=== PATIENT | female | born 1995 | race Caucasian/White ===

== ENCOUNTER 2016-07-19 20:58 | Emergency (ER) | payer OTHER ==
[2016-07-19] MEDS ORDERED: SODIUM CHLORIDE 0.9% 500 ML IV ONE (21:53)
--- NOTE | 2016-07-19 22:00 | ED ---
Female Urogenital HPI - General Chief complaint: Vaginal Bleeding Stated complaint: vag bleed, early preg Time Seen by Provider: 07/19/16 21:23 Source: patient Mode of arrival: ambulatory Limitations: no limitations - History of Present Illness Initial comments: This patient is a 20 year old woman who presents to be valid for vaginal bleeding. She states that started last night around 2 AM, and was initially light she describes it. 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 The patient states that the amount of blood increased this evening after work, and she passed 2 moderate sized blood clots. The patient denies having any pain or cramping. The patient states she is concerned because she took 2 tests about 6 weeks ago that were positive. Patient does not recall her blood type. She is . Complaint: vaginal bleeding Onset/Timin -: hour(s) Severity: mild Consistency: constant Improves with: none Worsens with: none Patient : Yes - Related Data Home Medications Medication Instructions Recorded Confirmed Ezg-Kvai-Scomb Acid 1 cap PO DAILY 07/19/16 07/19/16 [-U Capsule (formulary)] Allergies Allergy/AdvReac Type Severity Reaction Status Date / Time No Known Allergies Allergy Verified 07/19/16 22:09 Review of Systems ROS Statement: Those systems with pertinent positive or pertinent negative responses have been documented in the HPI. ROS Other: All systems not noted in ROS Statement are negative. Constitutional: Denies: fever, chills Respiratory: Denies: cough, dyspnea Cardiovascular: Denies: chest pain, palpitations Gastrointestinal: Denies: abdominal pain, nausea, vomiting Genitourinary: Reports: abnormal menses. Denies: dysuria, hematuria, discharge , dyspareunia Musculoskeletal: Denies: back pain Skin: Denies: rash Neurological: Denies: headache, weakness, numbness Hematological/Lymphatic: Denies: easy bleeding Past Medical History Past Medical History: No Reported History History of Any Multi-Drug Resistant Organisms: None Reported Past Surgical History: No Surgical Hx Reported Past Anesthesia/Blood Transfusion Reactions: No Reported Reaction Past Psychological History: Anxiety Smoking Status: Current every day smoker Past Alcohol Use History: None Reported Past Drug Use History: Marijuana - Past Family History Mother Family Medical History: No Reported History General Exam Limitations: no limitations General appearance: alert, in no apparent distress Head exam: Present: atraumatic, normocephalic Eye exam: Present: normal appearance, scleral icterus. Absent: conjunctival injection, periorbital swelling ENT exam: Present: normal oropharynx Neck exam: Present: normal inspection, full ROM Respiratory exam: Present: normal lung sounds bilaterally. Absent: respiratory distress, wheezes, rales, rhonchi, stridor Cardiovascular Exam: Present: regular rate, normal rhythm, normal heart sounds. Absent: systolic murmur, diastolic murmur, rubs, gallop GI/Abdominal exam: Present: soft, normal bowel sounds. Absent: distended, tenderness, guarding, rebound, mass, pulsatile mass, hernia External exam: Present: normal external exam. Absent: erythema, lesions, lacerations, ecchymosis Speculum exam: Present: normal speculum exam, vaginal bleeding (There is a small amount of dark blood present no active bleeding. Cervix is closed). Absent: vaginal discharge, cervical discharge By manual exam: Absent: cervical motion tenderness, adnexal tenderness, adnexal mass, uterine enlargement, uterine tenderness Extremities exam: Present: normal inspection, normal capillary refill. Absent: pedal edema, calf tenderness Back exam: Present: normal inspection. Absent: CVA tenderness (R), CVA tenderness (L) Neurological exam: Present: alert Skin exam: Present: warm, dry, intact, normal color. Absent: rash Course Vital Signs 07/19/16 07/20/16 21:15 00:56 Temperature 98.5 F 98.0 F Pulse Rate 60 55 L Respiratory 18 17 Rate Blood Pressure 131/68 101/58 O2 Sat by Pulse 100 100 Oximetry Medical Decision Making - Lab Data Lab Results 07/19/16 07/19/16 07/19/16 Range/Units 22:12 22:12 22:12 HCG, Quant mIU/mL Urine Color Yellow Urine Appearance Clear (Clear) Urine pH 5.5 (5.0-8.0) Ur Specific [place] 1.022 (1.001-1.035) Urine Protein Trace H (Negative) Urine Glucose (UA) Negative (Negative) Urine Ketones Negative (Negative) Urine Blood Moderate H (Negative) Urine Nitrite Negative (Negative) Urine Bilirubin Negative (Negative) Urine Urobilinogen <2.0 (<2.0) mg/dL Ur Leukocyte Esterase Small H (Negative) Urine RBC >182 H (0-5) /hpf Urine WBC 8 H (0-5) /hpf Ur Squamous Epith Cells 1 (0-4) /hpf Urine Bacteria Rare H (None) /hpf Urine Mucus Rare H (None) /hpf Urine HCG, Qual Detected (Not Detectd) Blood Type A Positive Blood Type Recheck No 07/19/16 Range/Units 22:12 HCG, Quant 2563.1 mIU/mL Urine Color Urine Appearance (Clear) Urine pH (5.0-8.0) Ur Specific [place] (1.001-1.035) Urine Protein (Negative) Urine Glucose (UA) (Negative) Urine Ketones (Negative) Urine Blood (Negative) Urine Nitrite (Negative) Urine Bilirubin (Negative) Urine Urobilinogen (<2.0) mg/dL Ur Leukocyte Esterase (Negative) Urine RBC (0-5) /hpf Urine WBC (0-5) /hpf Ur Squamous Epith Cells (0-4) /hpf Urine Bacteria (None) /hpf Urine Mucus (None) /hpf Urine HCG, Qual (Not Detectd) Blood Type Blood Type Recheck Disposition Clinical Impression: Vaginal bleeding before 22 weeks gestation, demise Disposition: HOME SELF-CARE Condition: Fair Instructions: Threatened Miscarriage (ED) Referrals: None,Stated [Primary Care Provider] - 1-2 days Betina Nava DO [Doctor of Osteopathic Medicine] - 1-2 days
[2016-07-19 22:31] LABS: Appearance,Urine Clear (Clear); Bacteria,Urine Rare /hpf; Bilirubin,Urine Negative (Negative); Glucose,Urine (UA) Negative (Negative); Ketones,Urine Negative (Negative); Leukocyte Esterase,Urine Small (Negative); Mucus,Urine Rare /hpf; Nitrite,Urine Negative (Negative); PH, Urine 5.5 (5.0-8.0); Particle Count 4233; Protein,Urine Trace (Negative); RBC,Urine >182 /hpf (0-5); Specific Gravity,Urine 1.022 (1.001-1.035); Squamous Epithelial Cell,Urine 1 /hpf (0-4); UA Billing (MACRO vs. MICRO) MICRO; Urobilinogen,Urine <2.0 mg/dL (<2.0); WBC,Urine 8 /hpf (0-5)
--- NOTE | 2016-07-20 02:50 | US ---
EXAM: US Pelvis Complete, Transabdominal US Pelvis, Transvaginal CLINICAL HISTORY: Reason: R/O ectopic TECHNIQUE: Real-time transabdominal and transvaginal pelvic ultrasound (complete) with image documentation. Transvaginal imaging was used for better evaluation of the endometrium and adnexa. COMPARISON: No relevant prior studies available. FINDINGS: There is a 7 week 6 day gestational age intrauterine . However, no cardiac activity is identified in the embryo. No subchorionic hemorrhage. There is a 2.5 x 1.9 x 1.5 cm complex structure in the right ovary. Left ovary is unremarkable. There is vascular flow in both ovaries. Trace amount of free fluid in cul-de-sac. IMPRESSION: Findings are consistent with demise of 7 week 6 day gestational age intrauterine . Likely 2.5 cm corpus luteal cyst in right ovary. Trace amount of free fluid in cul-de-sac. [employer] 07/20/16 03:02 Verify Receipt Verified receipt with KWAME Reid in the ER for Dr. Lemus on 07/20 03:01 (-04:00)
[2016-07-20 03:06] VITALS: BP 110/69; PULSE 65; RESP 20; TEMP 97.8
== END 2016-07-20 03:15 | disposition home or self-care (01) ==
LOC: EC 20:58
DX: O02.1 Missed abortion (principal); O99.331 Smoking (tobacco) complicating pregnancy, first trimester; F17.200 Nicotine dependence, unspecified, uncomplicated; Z3A.01 Less than 8 weeks gestation of pregnancy; Z79.899 Other long term (current) drug therapy
CPT/HCPCS: 36415; 76801; 76817; 81001; 81025; 84702; 86900; 86901; 93975; 99284

== ENCOUNTER 2016-07-22 15:30 | Day surgery (SDC) | payer OTHER ==
--- NOTE | 2016-07-22 11:27 | P.HPOB ---
History of Present Illness H&P Date: 07/22/16 Chief Complaint: incomplete 20 year old presents for suction D&C. She had an US 2 days ago showing a 7 week 6 day pole with no heart beat. Blood type A+. Review of Systems All systems: negative Constitutional: Denies chills, Denies fever Eyes: denies blurred vision, denies pain Ears, nose, mouth and throat: Denies headache, Denies sore throat Cardiovascular: Denies chest pain, Denies shortness of breath Respiratory: Denies cough Gastrointestinal: Denies abdominal pain, Denies diarrhea, Denies nausea, Denies vomiting Genitourinary: Denies dysuria, Denies hematuria Musculoskeletal: Denies myalgias Integumentary: Denies pruritus, Denies rash Neurological: Denies numbness, Denies weakness Psychiatric: Denies anxiety, Denies depression Endocrine: Denies fatigue, Denies weight change Past Medical History Past Medical History: No Reported History Additional Past Medical History / Comment(s): OB history: she has had one vaginal delivery and this is her second . History of Any Multi-Drug Resistant Organisms: None Reported Past Surgical History: No Surgical Hx Reported Past Anesthesia/Blood Transfusion Reactions: No Reported Reaction Past Psychological History: Anxiety Smoking Status: Current every day smoker Past Alcohol Use History: None Reported Past Drug Use History: Marijuana - Past Family History Mother Family Medical History: No Reported History Medications and Allergies Home Medications Medication Instructions Recorded Confirmed Type Ahg-Eqow-Wbnlk Acid 1 cap PO DAILY 07/19/16 07/19/16 History [-U Capsule (formulary)] Allergies Allergy/AdvReac Type Severity Reaction Status Date / Time No Known Allergies Allergy Verified 07/19/16 22:09 Exam Osteopathic Statement: *. No significant issues noted on an osteopathic structural exam other than those noted in the History and Physical/Consult. HEart: RRR Lungs: CTAB ABdomen: soft, nontender Extremeties: neg jamilah's Assessment and Plan (1) Incomplete Status: Acute Plan: 1. Suction D&C
[2016-07-22 15:56] VITALS: RESP 16
[2016-07-22] MEDS ORDERED: LACTATED RINGERS 1,000 ML IV ONE (16:07)
[2016-07-22] MEDS ORDERED: LIDOCAINE 1% 20 ML VIAL (10MG/ML) FOR IV START INTRADERMA ONE (16:07)
[2016-07-22] MEDS ORDERED: ONDANSETRON 4 MG/2 ML VIAL IVP ONE (16:09)
[2016-07-22] MEDS ORDERED: DEXAMETHASONE SOD PHOS (MDV) 100 MG/10 ML VIAL IVP ONE (16:09)
[2016-07-22 16:23] LABS: Basophils % (A) 1 %; CH 31.2; CHCM 33.4; Eosinophils # (A) 0.5 k/uL (0-0.7); Eosinophils % (A) 8 %; HCT 38.9 % (34.0-46.0); HDW 2.02; HGB 12.8 gm/dL (11.4-16.0); Luc # (Auto) 0.08; Luc % (Auto) 1; Lymphocytes # (A) 1.5 k/uL (1.0-4.8); Lymphocytes % (A) 26 %; MCH 30.9 pg (25.0-35.0); MCHC 32.9 g/dL (31.0-37.0); MCV 93.8 fL (80.0-100.0); Mean Platelet Volume 7.2; Monocytes # (A) 0.3 k/uL (0-1.0); Monocytes % (A) 5 %; Neutrophils # (A) 3.4 k/uL (1.3-7.7); Neutrophils % (A) 59 %; RBC 4.14 m/uL (3.80-5.40); RDW 12.7 % (11.5-15.5); WBC 5.7 k/uL (3.8-10.6); WBC (Perox) 6.26
[2016-07-22 16:25] VITALS: BMI 22.7
[2016-07-22] MEDS ORDERED: PROPOFOL 10 MG/ML 20 ML VIAL IV ONE (16:53)
[2016-07-22] MEDS ORDERED: LIDOCAINE 1% INJ 10MG/ML (20 ML MDV) ONE (16:53)
[2016-07-22] MEDS ORDERED: MIDAZOLAM 2 MG/2 ML VIAL ONE (16:53)
[2016-07-22] MEDS ORDERED: KETOROLAC 30 MG/ML 1 ML VIAL ONE (16:53)
[2016-07-22] MEDS ORDERED: fentaNYL (PF) 50 MCG/ML 2 ML AMP ONE (16:53)
--- NOTE | 2016-07-22 17:18 | P.OP ---
Date of Procedure: 07/22/16 Preoperative Diagnosis: 1. Incomplete Postoperative Diagnosis: 1. Incomplete Procedure(s) Performed: Suction D&C Implants: Anesthesia: MAC Surgeon: Betina Nava Estimated Blood Loss (ml): 100 IV fluids (ml): 500 Urine output (ml): 20 Pathology: other (Uterine contents) Condition: stable Disposition: PACU Indications for Procedure: Operative Findings: Description of Procedure: Patient was taken the operating room where general anesthesia was obtained without difficulty. She is prepped and draped in normal sterile fashion dorsal lithotomy position, legs placed in the candycane stirrups. Bladder was drained of all urine. Weighted speculum placed in the vagina and the anterior lip of the cervix was grasped with a single-tooth tenaculum. The cervix was dilated to #11 Hegar dilator. A #11 curved suction curet was introduced into the uterus and hooked up to suction. This was passed several times to obtain all tissue and blood. Sharp curet was gently used to ensure all tissue was removed. The suction curet was passed a couple more times to ensure all blood was removed. Excellent hemostasis was assured. Patient tolerated the procedure well. Sponge and instrument counts were correct 2. She was taken to recovery room in stable condition.
[2016-07-22 17:40] VITALS: TEMP 98
[2016-07-22 18:23] VITALS: BP 132/61; PULSE 61
[2016-07-23] MEDS ORDERED: Pre Op ABX Message 1 EACH MISC MISCELLANE ONE (05:00)
== END 2016-07-22 18:35 | disposition home or self-care (01) ==
LOC: OR 15:30
PROVIDERS: ATTEND Obstetrics & Gynecology
DX: O03.4 Incomplete spontaneous abortion without complication (principal); F17.200 Nicotine dependence, unspecified, uncomplicated; Z3A.01 Less than 8 weeks gestation of pregnancy; Z79.899 Other long term (current) drug therapy
CPT/HCPCS: 59812; 88305; 85025; J2250; J2405; J2001; J3010; J1885; J1100; J2704

== ENCOUNTER 2017-09-14 01:38 | Inpatient (IN) | payer OTHER ==
[2017-09-14] MEDS ORDERED: METHYLERGONOVINE 0.2 MG/ML 1 ML AMP IM PRN (01:59)
[2017-09-14] MEDS ORDERED: LIDOCAINE 1% (PF) 10 MG/ML (30 ML SDV) SQ PRN (01:59)
[2017-09-14] MEDS ORDERED: PENICILLIN G POTASSIUM 5,000,000 UNIT in DEXTROSE 5% IN WATER 100 ML IVPB STA ×2 (01:59)
[2017-09-14] MEDS ORDERED: TERBUTALINE 1 MG/ML VIAL SQ PRN (01:59)
[2017-09-14] MEDS ORDERED: CARBOPROST TROMETHAMINE 250 MCG/ML 1 ML AMP IM PRN (01:59)
[2017-09-14] MEDS ORDERED: OXYTOCIN 10 UNIT/ML 1 ML VIAL IM PRN (01:59)
[2017-09-14] MEDS ORDERED: LACTATED RINGERS 1,000 ML IV SCH (02:00)
[2017-09-14 02:23] VITALS: BMI 26.3
[2017-09-14] MEDS ORDERED: SODIUM CHLORIDE 0.9% 100 ML BAG ONE (02:23)
[2017-09-14] MEDS ORDERED: fentaNYL (PF) 50 MCG/ML 5 ML AMP ONE (02:23)
[2017-09-14] MEDS ORDERED: ROPIVACAINE 5MG/ML 20ML VIAL ONE (02:23)
[2017-09-14 02:59] LABS: Basophils % (A) 0 %; Eosinophils # (A) 0.1 k/uL (0-0.7); Eosinophils % (A) 3 %; HCT 30.7 % (34.0-46.0); HGB 9.7 gm/dL (11.4-16.0); Lymphocytes # (A) 1.2 k/uL (1.0-4.8); Lymphocytes % (A) 21 %; MCHC 31.7 g/dL (31.0-37.0); MCV 88.3 fL (80.0-100.0); Mean Platelet Volume 8.9; Monocytes # (A) 0.3 k/uL (0-1.0); Monocytes % (A) 6 %; Neutrophils # (A) 3.6 k/uL (1.3-7.7); Neutrophils % (A) 66 %; Platelet Count 176 k/uL (150-450); RBC 3.47 m/uL (3.80-5.40); RDW 12.8 % (11.5-15.5); WBC 5.5 k/uL (3.8-10.6)
[2017-09-14] MEDS: LACTATED RINGERS 1,000 ML IV SCH (05:30)
[2017-09-14] MEDS: PENICILLIN G POTASSIUM 2,500,000 UNIT in DEXTROSE 5% IN WATER 100 ML IVPB SCH ×4 (06:30→12:20)
[2017-09-14] MEDS: OXYTOCIN 20 UNITS/1000 ML NS 1,000 ML IV SCH ×2 (07:13→12:36)
--- NOTE | 2017-09-14 07:18 | P.HPOB ---
History of Present Illness H&P Date: 09/14/17 Chief Complaint: My water broke This is a 22-year-old white female 3 para 1011 EDC 09/09/2017 at 40-4/7 weeks' gestation. Patient has had her care through another physician and institution, but presented here because she felt her water broke at 0015 hours, clear fluid. She denies vaginal bleeding or fluid leakage. Irregular moderate uterine contractions are noted. history is significant for blood type A+, antibody screen negative. VDRL nonreactive, urine culture negative, hepatitis B surface antigen and HIV testing negative, gonorrhea and chlamydia cultures negative, group B strep cultures positive. Social history significant for positive tobacco and marijuana use, patient denies alcohol or drug use with the . She is single. Past medical history is essentially negative. Past surgical history negative. ALLERGIES none known. Current medications vitamins daily. On exam she is 5 foot 7 inches, 168 pounds, blood pressure 131/84 and admission , patient is afebrile. The general physical exam is within normal limits. The cervix at time of this dictation is 8 cm dilated, 80% effaced, -1 station, vertex presentation. heart rate is consistent with reactive NST. Impression: 40-4/7 weeks intrauterine , active labor, care elsewhere, patient is not known to me with this current . Positive group B strep cultures, 2 doses of penicillin already received. Plan: Continue close maternal and surveillance. I would order a urine drug screen at this time. Anticipate normal spontaneous vaginal delivery. Review of Systems Constitutional: Reports as per HPI Past Medical History Past Medical History: No Reported History Additional Past Medical History / Comment(s): OB history: she has had one vaginal delivery 1 CURRENT MISCARRIAGE, KIDNEY INFECTION A CHILD, low iron History of Any Multi-Drug Resistant Organisms: None Reported Past Surgical History: No Surgical Hx Reported Additional Past Surgical History / Comment(s): SUCTION D&C 08/01 Past Anesthesia/Blood Transfusion Reactions: No Reported Reaction Past Psychological History: Anxiety Smoking Status: Former smoker Past Alcohol Use History: None Reported Past Drug Use History: Marijuana - Past Family History Mother Family Medical History: No Reported History Medications and Allergies Home Medications Medication Instructions Recorded Confirmed Type Dqb-Uzsu-Nqffp Acid 1 cap PO DAILY 07/19/16 09/14/17 History [-U Capsule (formulary)] Allergies Allergy/AdvReac Type Severity Reaction Status Date / Time No Known Allergies Allergy Verified 09/14/17 01:43 Exam Vital Signs Temp Pulse Resp BP Pulse Ox 09/14/17 02:18 98.1 F 71 16 131/84 99 09/14/17 01:56 98.1 F 71 16 131/84 99 Intake and Output 09/13/17 09/14/17 09/14/17 22:59 06:59 14:59 Intake Total 1000 Output Total 350 Balance 650 Intake: IV 1000 Lactated Ringers 1,000 ml 1000 @ 999 mls/hr IV .Q1H1M MICHELLE Rx#:[id number] Output: Urine 350 Other: Weight 76.204 kg As per HPI Results Result Diagrams: 09/14/17 02:25 Abnormal Lab Results - Last 24 Hours (Table) 09/14/17 Range/Units 02:25 RBC 3.47 L (3.80-5.40) m/uL Hgb 9.7 L (11.4-16.0) gm/dL Hct 30.7 L (34.0-46.0) % Assessment and Plan Plan: Anticipate normal spontaneous vaginal delivery. Time with Patient: Less than 30
[2017-09-14] MEDS ORDERED: diphenhydrAMINE 50 MG CAP PO PRN (09:38)
[2017-09-14] MEDS ORDERED: diphenhydrAMINE 50 MG/ML 1 ML VIAL IVP PRN ×2 (09:38)
[2017-09-14] MEDS ORDERED: ACETAMINOPHEN TAB 325 MG TAB PO PRN (09:38)
[2017-09-14] MEDS ORDERED: WITCH HAZEL 1 EACH MED..PAD TOPICAL PRN (09:38)
[2017-09-14] MEDS ORDERED: LANOLIN CREAM 5 GM TUBE TOPICAL PRN (09:38)
[2017-09-14] MEDS ORDERED: SIMETHICONE 80 MG CHEWABLE PO PRN (09:38)
[2017-09-14] MEDS ORDERED: BENZOCAINE/MENTHOL SPRAY 1 GM/SPRAY AEROSOL TOPICAL PRN (09:38)
[2017-09-14] MEDS ORDERED: HYDROcodone/APAP 5-325MG 1 EACH TAB PO PRN (09:38)
[2017-09-14] MEDS ORDERED: ZOLPIDEM 5 MG TAB PO PRN (09:38)
[2017-09-14] MEDS ORDERED: diphenhydrAMINE 25 MG CAP PO PRN (09:38)
[2017-09-14] MEDS ORDERED: HYDROCORTISONE 2.5% RECTAL CREAM 30 GM TUBE RECTAL PRN (09:38)
--- NOTE | 2017-09-14 09:38 | P.PROBDLV ---
Vaginal Delivery Note - . Vaginal Delivery Note: This is a 22-year-old white female 3 para 1011 who presented to our hospital at 40-4/7 weeks' gestation with a history of her water breaking at home. Patient is unknown to me with this current , she is following with another physician at a different institution became here stating that her physician is on vacation. Please see my dictated history and physical for details. On admission patient was 5-6 cm dilated, obvious ruptured membranes, fluid clear. She requested an epidural and this was placed without difficulty. A small amount of oxytocin augmentation was given in the first stage of labor. Her history is significant for positive group B strep cultures, penicillin G was given 2 doses. She became completely dilated at 0916 hours and began the second stage of labor at that time. heart rate was reassuring throughout the first and second stages of labor. Perineal body is prepped and draped in usual sterile fashion. With excellent maternal expulsive efforts the 's head delivered occiput anterior and restituted accordingly. There was no nuchal cord noted. The oropharynx, nasopharynx, and external nares were all bulb suctioned on the perineal body. Patient was officially delivered of a liveborn male infant at 0924 hours. Umbilical cord was doubly clamped and ligated, he was handed to waiting nurses for evaluation where scores of 8 and 9 at one and 5 minutes respectively are given. At this time the uterus was massaged. With again excellent maternal expulsive efforts the placenta is delivered spontaneously and intact at 0927 hours. Upon inspecting the placenta I am suspecting a succenturiate lobe, therefore the placenta is being sent to pathology for further evaluation. Trivascular cord is noted. The uterus is massaged, bleeding is appropriate. Inspection of the cervix, vagina, perineum, periurethral, and perirectal areas reveals no lacerations and no defects. Fundus is firm and in the midline, symmetric and 18 week size upon completion of delivery. weighs 3660 g or 8 lbs. 1 oz. They are requesting circumcision further infant son.
[2017-09-14] MEDS: IBUPROFEN 600 MG TAB PO PRN (12:40)
[2017-09-14 12:43] LABS: Amphetamine Screen,Urine Not Detected (NotDetected); Barbiturate Screen,Urine Detected (NotDetected); Benzodiazepines Screen,Urine Not Detected (NotDetected); Cocaine Screen,Urine Not Detected (NotDetected); Methadone Screen, Urine Not Detected (NotDetected); Opiate Screen,Urine Not Detected (NotDetected); Oxycodone Screen, Urine Not Detected (NotDetected); Phencyclidine Screen,Urine Not Detected (NotDetected); Tricyclic Antidepressant,Urine Not Detected (NotDetected); Urn Cannabinoid Scrn Not Detected (NotDetected)
[2017-09-14] MEDS ORDERED: SENNOSIDES-DOCUSATE SODIUM 1 EACH TAB PO SCH (20:00)
[2017-09-14 23:27] VITALS: RESP 16
[2017-09-15] MEDS: LACTATED RINGERS 1,000 ML IV SCH ×2 (00:28→00:29)
[2017-09-15] MEDS: PENICILLIN G POTASSIUM 2,500,000 UNIT in DEXTROSE 5% IN WATER 100 ML IVPB SCH ×2 (00:29)
--- NOTE | 2017-09-15 08:09 | P.DS ---
Providers Date of admission: 09/14/17 01:56 Expected date of discharge: 09/15/17 Attending physician: Maricarmen Sanders Primary care physician: Maricarmen Sanders [facility] Course: ` This is a 22-year-old white female 3 para 1011 who presented to our hospital at 40-4/7 weeks' gestation with spontaneous amniorrhexis, in early labor. Her care was given by another provider, patient came [address] [place] [address] because she states that her doctor is on vacation this week. records were obtained and reviewed, blood type A+, group B strep cultures positive, rubella status immune. Please see my dictated history and physical for details. Penicillin G was given 2 doses as per our protocol. Oxytocin was given, epidural placed per her request. She went on to deliver a liveborn male infant with scores of 8 and 9 at one and 5 minutes respectively. weighed 3660 g or 8 lbs. 1 oz. No perineal lacerations or defects were noted. Please see my dictated delivery note for details. This morning the patient is doing well. She is voiding, ambulating and passing flatus without difficulty. Vital signs are stable and she is afebrile. [place] infant's circumcision has been performed. Patient's uterus is firm, midline, symmetric and 18 week size. Extremities are negative for edema. Perineal body is clean and dry. Lochia rubra is minimal to moderate, no large clots. Patient's status is judged to be very good for discharge home. Patient is discharged home at this time with instructions to follow-up in the office in 6 weeks. She is reminded no intercourse, tampons or douching. She will use [id number] Advil Aleve or Motrin products as needed for pain. I' ve asked her to call with any fevers shakes or chills, foul smelling or copious lochia, with the passage of large blood clots, with any pain not alleviated by [id number] products, or indeed with any concerns. Patient Condition at Discharge: Good Plan - Discharge Summary New Discharge Prescriptions: No Action Buo-Uqwj-Wxpfn Acid [-U Capsule (formulary)] 1 cap PO DAILY Discharge Medication List Ymf-Mgfj-Qspsa Acid [-U Capsule (formulary)] 1 cap PO DAILY 06/01 [History] Follow up Appointment(s)/Referral(s): Maricarmen Sanders MD [Primary Care Provider] - 6 Weeks Discharge Disposition: HOME SELF-CARE
[2017-09-15] MEDS: IBUPROFEN 600 MG TAB PO PRN (09:52)
[2017-09-15 10:08] VITALS: BP 122/72; PULSE 84; TEMP 98.2
== END 2017-09-15 12:15 | disposition home or self-care (01) | DRG 775 ==
LOC: FBPOP 01:38 → 4FBP 01:56
PROVIDERS: ADMIT Obstetrics & Gynecology; ATTEND Obstetrics & Gynecology
PROC: 10E0XZZ Delivery of Products of Conception, External Approach (ICD-10-PCS; principal; 2017-09-14)
PROC: 00HU33Z Insertion of Infusion Device into Spinal Canal, Percutaneous Approach (ICD-10-PCS; 2017-09-14)
PROC: 3E0R3BZ Introduction of Anesthetic Agent into Spinal Canal, Percutaneous Approach (ICD-10-PCS; 2017-09-14)
DX: O99.824 Streptococcus B carrier state complicating childbirth (principal); O99.62 Diseases of the digestive system complicating childbirth; R12 Heartburn; O99.344 Other mental disorders complicating childbirth; F41.9 Anxiety disorder, unspecified; Z37.0 Single live birth; Z3A.40 40 weeks gestation of pregnancy; Z87.891 Personal history of nicotine dependence; Z87.440 Personal history of urinary (tract) infections
CPT/HCPCS: 59025; 80306; 84112; 85025; 87340; 88307; 99213